=== PATIENT | male | born 1945 | race Caucasian/White ===

== ENCOUNTER 2022-02-03 20:55 | Emergency (ER) | payer SELFPAY ==
[~2022-02-03] VITALS: Ht 182.9 cm; Wt 100.0 kg
[2022-02-03] MEDS ORDERED: NALOXONE HCL 1 MG/ML 2ML VIAL IV ONE (21:30)
[2022-02-03 23:16] LABS: CLARITY URINE CLEAR (CLEAR); COLOR URINE YELLOW (YELLOW); KETONES URINE TRACE (NEGATIVE); LEUKOCYTE ESTERASE URINE NEGATIVE (NEGATIVE); NITRITE URINE NEGATIVE (NEGATIVE); OCCULT BLOOD URINE NEGATIVE (NEGATIVE); PH URINE 5.5 (4.5-8.0); PROTEIN URINE 1+ (NEGATIVE); SPECIFIC GRAVITY URINE 1.024 (1.005-1.030)
[2022-02-03 23:22] LABS: *AMPHETAMINES SCREEN URINE NEGATIVE (NEGATIVE); *BARBITURATES SCREEN URINE NEGATIVE (NEGATIVE); *BENZODIAZEPINES SCREEN URINE NEGATIVE (NEGATIVE); *COCAINE SCREEN URINE NEGATIVE (NEGATIVE); METHADONE URINE SCREEN NEGATIVE (NEGATIVE); OPIATES URINE SCREEN NEGATIVE (NEGATIVE)
[2022-02-03 23:23] LABS: CANNABINOID URINE SCREEN NEGATIVE (NEGATIVE); PHENCYCLIDINE URINE SCREEN NEGATIVE (NEGATIVE)
[2022-02-03 23:38] LABS: CHLORIDE 110 mEq/L (98-107)
[2022-02-03 23:42] LABS: ETHANOL BLOOD < 10 mg/dL
[2022-02-03 23:46] LABS: BASOPHILS % 0.3 % (0.0-2.0); EOSINOPHILS % 0.9 % (0.0-5.0); HEMOGLOBIN. 12.3 g/dL (14.0-18.0); MEAN CORPUSCULAR HEMOGLOBIN 30.8 pg (28.0-32.0); MEAN CORPUSCULAR VOLUME 92.4 fL (80.0-94.0); MEAN PLATELET VOLUME 6.5 fl (7.4-10.4); MONOCYTES % 5.1 % (2.0-8.0); NEUTROPHILS % 78.7 % (40.0-76.0); PLATELET 304 x1000/uL (130-400)
[2022-02-03 23:47] LABS: CREATINE KINASE 91 IU/L (39-308)
[2022-02-04] MEDS ORDERED: LEVETIRACETAM 500MG PREMIX 100 ML IV ONE (01:45)
[2022-02-04 02:45] VITALS: BP 141/71
== END 2022-02-04 03:02 | disposition home or self-care (01) ==
LOC: ER 20:55
DX: G40.909 Epilepsy, unspecified, not intractable, without status epilepticus (principal); E11.9 Type 2 diabetes mellitus without complications; I10 Essential (primary) hypertension; I69.354 Hemiplegia and hemiparesis following cerebral infarction affecting left non-dominant side; F11.10 Opioid abuse, uncomplicated
CPT/HCPCS: 36415; 70450; 71045; 80053; 80305; 80320; 81003; 82140; 82550; 83690; 84443; 85025; 96365; 96375; 99285; J1953; J2310; G0480